=== PATIENT | female | born 2005 | race Caucasian/White ===

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

== ENCOUNTER 2025-03-03 07:49 | Emergency (ER) | payer MEDICAID ==
[~2025-03-03] VITALS: Ht 160 cm; Wt 63.6 kg
[~2025-03-03 07:49] MED LIST changes: -ACET-2080 PO; -AMOX500C2 PO; -CORTSUSP AD; -GUAIFDM PO; +LEVE500T9 PO
[2025-03-03 07:55] VITALS: TEMP 98.6
[2025-03-03 08:18] LABS: PLATELET COUNT (AUTO) 311 K/uL (150-450); RED BLOOD CELL COUNT(AUTO) 4.54 MIL/uL (4.00-5.20); RED CELL DISTRIBUTION WIDTH 14.2 % (11.5-14.5); WHITE BLOOD COUNT (AUTO) 7.7 K/uL (4.5-11.0)
[2025-03-03] MEDS: SODIUM CHLORIDE 0.9% 1,000 ML IV ONE (08:21)
[2025-03-03] MEDS: LevETIRAcetam 1,000 MG in DEXTROSE 5%-WATER 100 ML IV ONE (08:21)
[2025-03-03] MEDS: ACETAMINOPHEN 325 MG TABLET PO ONE (08:22)
[2025-03-03 08:26] LABS: CALCIUM, TOTAL 8.3 mg/dL (8.8-10.5); CREATININE 0.59 mg/dL (0.60-1.30); GLOMERULAR FILTR. RATE CALC > 60 mL/min (>60); GLUCOSE,RANDOM 110 mg/dL (70-110); SODIUM SERUM 138 mmol/L (136-145); UREA NITROGEN, BLOOD 10 mg/dL (7-18)
[2025-03-03 08:33] LABS: ASPARTATE AMINOTRANSFERASE 27 U/L (15-37); CREATINE KINASE, TOTAL ONLY 123 U/L (26-192); TOTAL PROTEIN, SERUM 7.4 g/dL (6.4-8.2)
[2025-03-03 08:36] LABS: ALCOHOL, BLOOD (SERUM) < 3 mg/dL (0-10)
[2025-03-03 08:42] LABS: TROPONIN I-HIGH SENSITIVITY 9 ng/L (<51)
[2025-03-03] MEDS ORDERED: LEVE-71 PO (09:46)
[2025-03-03 10:23] LABS: APPEARANCE,URINE CLEAR (CLEAR); GLUCOSE, URINE (UA) NEGATIVE (NEGATIVE); LEUKOCYTE ESTERASE ,URINE NEGATIVE (NEGATIVE); NITRATE,URINE NEGATIVE (NEGATIVE); OCCULT BLOOD,URINE LARGE (NEGATIVE); PH,URINE DRUG SCREEN 6.5 (5.0-8.0); SPECIFIC GRAVITIY, URINE 1.008 (1.003-1.030)
[2025-03-03 10:28] LABS: AMPHET/METH SCREEN,URINE NEGATIVE (NEGATIVE); BARBITURATE SCREEN, URINE NEGATIVE (NEGATIVE); CANNABINOID SCREEN,URINE NEGATIVE (NEGATIVE); COCAINE SCREEN,URINE NEGATIVE (NEGATIVE); METHADONE SCREEN, URINE NEGATIVE (NEGATIVE)
[2025-03-03 10:29] LABS: ALCOHOL, URINE DRUG SCREEN NEGATIVE (NEGATIVE)
[2025-03-03 11:20] VITALS: BP 140/90; PULSE 95; RESP 18; O2SAT 96
== END 2025-03-03 11:26 | disposition home or self-care (01) ==
LOC: EMS 07:50
DX: R55 Syncope and collapse (principal)
CPT/HCPCS: 99285; 70450; 96374; 71045; 80048; 80076; 81001; 82550; 83880; 84484; 84703; 85025; 36415; 72125; 93005; 80307; J0712; G0480; J7060

== ENCOUNTER 2025-04-14 20:10 | Emergency (ER) | payer MEDICAID ==
[~2025-04-14] VITALS: Ht 152.4 cm; Wt 72.7 kg
[~2025-04-14 20:10] MED LIST changes: +LEVE-71 PO; -LEVE500T9 PO
[2025-04-14 20:40] VITALS: BP 128/97; PULSE 90; RESP 16; TEMP 98.405312; O2SAT 98
[2025-04-14 21:02] LABS: PLATELET COUNT (AUTO) 309 K/uL (150-450); RED BLOOD CELL COUNT(AUTO) 4.68 MIL/uL (4.00-5.20); RED CELL DISTRIBUTION WIDTH 13.7 % (11.5-14.5); WHITE BLOOD COUNT (AUTO) 12.6 K/uL (4.5-11.0)
[2025-04-14 21:07] LABS: CALCIUM, TOTAL 8.8 mg/dL (8.8-10.5); CREATININE 0.41 mg/dL (0.60-1.30); GLOMERULAR FILTR. RATE CALC > 60 mL/min (>60); GLUCOSE,RANDOM 110 mg/dL (70-110); SODIUM SERUM 140 mmol/L (136-145); UREA NITROGEN, BLOOD 9 mg/dL (7-18)
[2025-04-14 21:14] LABS: ASPARTATE AMINOTRANSFERASE 24.0 U/L (15-37); TOTAL PROTEIN, SERUM 8.2 g/dL (6.4-8.2)
[2025-04-14] MEDS: ONDANSETRON HCL 4 MG/2 ML VIAL IVP ONE (21:17)
[2025-04-14] MEDS: SODIUM CHLORIDE 0.9% 1,000 ML IV ONE (21:17)
[2025-04-14 21:18] LABS: HCG,QUANTITATIVE < 1 mIU/mL (0-6)
[2025-04-14 22:17] LABS: APPEARANCE,URINE CLEAR (CLEAR); GLUCOSE, URINE (UA) NEGATIVE (NEGATIVE); LEUKOCYTE ESTERASE ,URINE NEGATIVE (NEGATIVE); NITRATE,URINE NEGATIVE (NEGATIVE); OCCULT BLOOD,URINE NEGATIVE (NEGATIVE); SPECIFIC GRAVITIY, URINE 1.035 (1.003-1.030)
[2025-04-14] MEDS: LevETIRAcetam 1,000 MG in DEXTROSE 5%-WATER 100 ML IV ONE (23:03)
== END 2025-04-14 23:46 | disposition home or self-care (01) ==
LOC: EMS 20:10
DX: G40.909 Epilepsy, unspecified, not intractable, without status epilepticus (principal); N89.8 Other specified noninflammatory disorders of vagina; Z79.899 Other long term (current) drug therapy
CPT/HCPCS: 99284; 96374; 96361; 96375; 80048; 80076; 81003; 83690; 84702; 85025; 36415; 93005; J0712; J2405; J7060; J7030